=== PATIENT | female | born 1980 | race Caucasian/White ===

== ENCOUNTER → 2017-10-27 | Outpatient (CLI) | payer BC | END | disposition home or self-care (01) | LOC: US 16:20 | DX: N83.291 Other ovarian cyst, right side (principal); N88.8 Other specified noninflammatory disorders of cervix uteri | CPT/HCPCS: 76830; 76856 ==

== ENCOUNTER 2017-12-21 05:58 | Observation (INO) | payer BC ==
[~2017-12-21] VITALS: Ht 177.8 cm; Wt 101.2 kg
[2017-12-21] MEDS ORDERED: METHYLENE BLUE 1% 10 ML VIAL. ONE (06:15)
[2017-12-21] MEDS ORDERED: BUPIVACAINE-EPI 0.25%-1:200000 50 ML VIAL. ONE (06:15)
[2017-12-21] MEDS ORDERED: SURGICEL HEMOSTAT 4X8 EACH. ONE (06:16)
[2017-12-21] MEDS ORDERED: ESTROGENS, CONJ VAGINAL CREAM 30GM TUBE. ONE (06:16)
[2017-12-21] MEDS ORDERED: GABA-585 PO (06:27)
[2017-12-21] MEDS ORDERED: NORE5TAB3 PO (06:30)
[2017-12-21 06:36] LABS: U PREG PATIENT NEGATIVE (NEG)
[2017-12-21] MEDS: IV RINGERS,LACTATED 1000ML 1,000 ML IV SCH ×2 (06:42→11:15)
[2017-12-21] MEDS ORDERED: fentaNYL PF VIAL 100 MCG/2 ML VIAL IV PRN (07:00)
[2017-12-21] MEDS ORDERED: LIDOCAINE 1% PF 2 ML VIAL. ID PRN (07:00)
[2017-12-21] MEDS ORDERED: ONDANSETRON PF 4 MG/2 ML VIAL. IV PRN ×2 (07:00→09:45)
[2017-12-21 07:09] LABS: BASO % 0 % (0-3); EOS # 0.3 x10^3/uL (0.0-0.7); EOS % 4 % (0-3); HEMATOCRIT 42.5 % (36.0-47.0); HEMOGLOBIN 14.6 g/dL (12.0-15.5); LYMPH # 2.6 x10^3/uL (1.0-4.8); LYMPH % 34 % (24-48); MEAN CORPUSCULAR HEMOGLOBIN 31 pg (25-35); MEAN CORPUSCULAR HGB CONC 34 g/dL (31-37); MEAN CORPUSCULAR VOLUME 91 fL (79-100); MONO # 0.4 x10^3/uL (0.0-1.1); MONO % 5 % (0-9); NEUT # 4.3 x10^3uL (1.8-7.7); NEUT % 56 % (31-73); PLATELET COUNT 172 x10^3/uL (140-400); RED BLOOD COUNT 4.66 x10^6/uL (3.50-5.40); RED CELL DISTRIBUTION WIDTH 13.6 % (11.5-14.5); WHITE BLOOD COUNT 7.6 x10^3/uL (4.0-11.0)
[2017-12-21] MEDS ORDERED: fentaNYL PF VIAL 250 MCG/5 ML VIAL ONE (07:37)
[2017-12-21] MEDS ORDERED: MIDAZOLAM HCL/PF 2 MG/2 ML VIAL. ONE (07:37)
[2017-12-21] MEDS ORDERED: ROCURONIUM 50 MG/5 ML VIAL. ONE (07:37)
[2017-12-21] MEDS ORDERED: LIDOCAINE 2% PF Vial for OR 5 ML VIAL. ONE (08:57)
[2017-12-21] MEDS ORDERED: DEXAMETHASONE SOD PHOS 20 MG/5 ML VIAL. ONE (08:57)
[2017-12-21] MEDS ORDERED: ONDANSETRON PF 4 MG/2 ML VIAL. ONE (08:57)
[2017-12-21] MEDS ORDERED: PROPOFOL 20 ML IV ONE (08:57)
[2017-12-21] MEDS ORDERED: NEOSTIGMINE METHYLSULFATE 5 MG/5 ML SYRINGE. ONE (08:58)
[2017-12-21] MEDS ORDERED: GLYCOPYRROLATE 1 MG/5 ML VIAL. ONE (08:58)
--- NOTE | 2017-12-21 09:32 | PDOC ---
BRIEF OPERATIVE NOTE Date: Dec 21, 2017 Pre-Op Diagnosis 1. Endometriosis 2. Fibroids 3. ROV Cyst 4. Chronic Pelivc Pain Post-Op Diagnosis Same Procedure Performed TLH & RSO vai Da Brandy Surgeon Dr. Morris Braille Typist Yusra Anesthesia Type: General Blood Loss 25 ml Specimens Obtained cervix, uterus, roxie. fallopian tubes and ROV Findings enlarged, fibroid uterus; ROV cyst 3 cm; nml fallopian tubes and nml NAYE Complications none Operative Note see dictation SHARON MORRIS Jr, MD Dec 21, 2017 09:32
[2017-12-21] MEDS ORDERED: fentaNYL PF VIAL 100 MCG/2 ML VIAL ONE (09:44)
[2017-12-21] MEDS ORDERED: diphenhydrAMINE 50 MG/ML VIAL IV PRN (09:45)
[2017-12-21] MEDS ORDERED: DEXTROSE 50% 25 GM / 50ML DISP.SYRIN. IV PRN (09:45)
[2017-12-21] MEDS ORDERED: ZOLPIDEM 5 MG TABLET. PO PRN (09:45)
[2017-12-21] MEDS ORDERED: CALCIUM CARBONATE 500 MG TAB.CHEW PO PRN (09:45)
[2017-12-21] MEDS ORDERED: PROCHLORPERAZINE 10 MG/2 ML VIAL. IV PRN (09:45)
[2017-12-21] MEDS ORDERED: 0.9 % SODIUM CHLORIDE 10 ML DISP.SYRIN. IV PRN (09:45)
[2017-12-21] MEDS ORDERED: diphenhydrAMINE HCL 25 MG CAPSULE PO PRN (09:45)
[2017-12-21] MEDS: PROCHLORPERAZINE 10 MG/2 ML VIAL. IV PRN ×2 (09:54→10:07)
[2017-12-21] MEDS: fentaNYL PF VIAL 100 MCG/2 ML VIAL IV PRN ×2 (10:06→10:25)
--- NOTE | 2017-12-21 11:25 | OP ---
DATE OF SURGERY: 12/21/2017 PREOPERATIVE DIAGNOSES: 1. Endometriosis. 2. Fibroids. 3. Right ovarian cyst. 4. Chronic pelvic pain. POSTOPERATIVE DIAGNOSES: 1. Endometriosis. 2. Fibroids. 3. Right ovarian cyst. 4. Chronic pelvic pain. PROCEDURE: TLH and RSO via da Brandy robot. SURGEON: Sharon Morris MD. MENTAL HEALTH TECHNICIAN: Yusra. ANESTHESIA: GETA. ESTIMATED BLOOD LOSS: 25 mL. COMPLICATIONS: None. FINDINGS: Enlarged fibroid uterus, right ovarian cyst 3 cm size, normal fallopian tubes and normal left ovary. SUMMARY: A 37-year-old with endometriosis, fibroids, chronic pelvic pain, and right ovarian cyst requiring hysterectomy. She was counseled on risks, benefits and expectations of robotic TLH and RSO. The patient voiced clear understanding of all risks and desired to proceed. DESCRIPTION OF PROCEDURE: The patient was taken to the surgery suite and placed in dorsal lithotomy position. She was prepped with Betadine solution for vaginal prep and ChloraPrep for abdominal prep. After adequate anesthesia, a weighted speculum and curved Murphy placed vaginally. Anterior lip of the cervix grasped with single tooth tenaculum. The EMERITA uterine manipulator was then placed. The single tooth tenaculum and weighted speculum and curved Murphy were removed. Attention was now placed on abdomen. Small transverse skin incision was made just below the umbilicus. The Veress needle was then placed through the infraumbilical incision site. The abdomen was allowed to insufflate up to 1.5 liters of CO2 gas. The Veress needle was then removed. The 8-mm trocar camera port was placed. Camera was positioned. Uterus was enlarged with multiple fibroids. The right ovary demonstrated a 3-cm size cyst. There was a possible evidence of endometriosis on the posterior cul-de-sac. Two additional incisions in the left and right lower quadrant with a scalpel, in which 8-mm trocars were placed. An accessory port was placed in the left upper quadrant, which was a 5-mm port. The robot was then docked in normal fashion. I then proceeded to the console. With the aid of the vessel sealer and the bipolar cautery, the right round ligament was coagulated and dissected. The right infundibulopelvic ligament was coagulated and dissected. The right broad ligament was coagulated and dissected down to and including the right uterine artery. Bladder flap was partially created using blunt dissection along with the vessel sealer. The left round ligament was then coagulated and dissected. Left fallopian tube was coagulated and dissected away from the left ovary. The left utero-ovarian pedicle was coagulated and dissected. Left broad ligament was coagulated and dissected including the left uterine artery. Spatula was utilized to circumscribe the cervix at the level of the cervical ring. The cervix, uterus, right fallopian tube and ovary and left fallopian tube were removed. The vaginal cuff was reapproximated using V-Loc suture in a running fashion. Suction irrigation was utilized to verify good hemostasis. A small amount of normal saline was left in posterior cul-de-sac. Trocars were removed under direct visualization. The abdomen was allowed to deflate as much as possible along with mechanical manipulation. The four skin incisions were reapproximated using 4-0 Vicryl suture in subcuticular manner. A 0.25% Marcaine with epinephrine was injected at each incision site. Moist vaginal packing was placed. The patient tolerated the procedure well and was taken to recovery room in stable condition. Sponge and needle count correct x 3. The ureters were visualized and functioning properly. SHARON MORRIS MD DR: JIMENA/miguel JOB#: [id number] / [id number]
[2017-12-21 11:32] VITALS: BP 114/63
[2017-12-21 11:47] VITALS: BP 119/58
[2017-12-21 12:10] VITALS: BP 126/56
[2017-12-21 12:45] VITALS: BP 131/70
[2017-12-21] MEDS: oxyCODONE/APAP 5/325 1 TAB TABLET PO PRN ×3 (13:05→22:08)
[2017-12-21 13:18] VITALS: BP 122/68
[2017-12-21] MEDS: GABAPENTIN 300 MG CAPSULE. PO SCH ×2 (13:55→22:08)
[2017-12-21] MEDS: SIMETHICONE 80 MG TAB.CHEW PO PRN (18:43)
[2017-12-21 22:00] VITALS: BP 130/60
[2017-12-22 02:00] VITALS: BP 121/71
[2017-12-22] MEDS: oxyCODONE/APAP 5/325 1 TAB TABLET PO PRN ×5 (02:12→18:05)
[2017-12-22 04:21] LABS: BASO % 0 % (0-3); EOS # 0.1 x10^3/uL (0.0-0.7); EOS % 1 % (0-3); HEMOGLOBIN 12.9 g/dL (12.0-15.5); LYMPH # 2.8 x10^3/uL (1.0-4.8); LYMPH % 20 % (24-48); MEAN CORPUSCULAR HEMOGLOBIN 31 pg (25-35); MEAN CORPUSCULAR HGB CONC 34 g/dL (31-37); MEAN CORPUSCULAR VOLUME 92 fL (79-100); MONO # 0.7 x10^3/uL (0.0-1.1); MONO % 5 % (0-9); NEUT # 10.5 x10^3uL (1.8-7.7); NEUT % 74 % (31-73); PLATELET COUNT 153 x10^3/uL (140-400); RED BLOOD COUNT 4.13 x10^6/uL (3.50-5.40); RED CELL DISTRIBUTION WIDTH 13.7 % (11.5-14.5); WHITE BLOOD COUNT 14.1 x10^3/uL (4.0-11.0)
[2017-12-22] MEDS: GABAPENTIN 300 MG CAPSULE. PO SCH ×2 (06:03→16:32)
[2017-12-22 06:08] VITALS: BP 121/68
[2017-12-22 08:05] VITALS: BP 128/69
[2017-12-22] MEDS: DOCUSATE SODIUM 100 MG CAPSULE. PO PRN ×2 (08:11→16:32)
[2017-12-22] MEDS: SIMETHICONE 80 MG TAB.CHEW PO PRN ×3 (08:11→16:32)
[2017-12-22] MEDS ORDERED: IBUPROFEN 800 MG TABLET. PO PRN (12:30)
[2017-12-22] MEDS ORDERED: OPIUM/BELLADONNA 30/16.2MG SUPP.RECT. PR PRN (13:45)
--- NOTE | 2017-12-22 14:00 | PDOC3 ---
Admit Date: 12/21/17 D/c Date: 12/22/17 Admit Dx: Endometriosis Fibroids ROV Cyst D/c Dx: same Procedure: TLH & RSO via Da Brandy robot Surgeon: Dr. Morris [facility] Hospital Course: Pt. underwent TLH & RSO without complications for above diagnoses. D/c Diet: Regular diet D/c Instructions: pelvic rest x 6 wks, no driving x 2 wks, no lifting > 20 lbs. x 4 wks F/u in 2 wks. SHARON MORRIS Jr, MD Dec 22, 2017 14:00
--- NOTE | 2017-12-22 14:00 | DISCH ---
DISCHARGE INSTRUCTIONS Condition on Discharge Condition on Discharge: Stable Activity After Discharge Activity Instructions for Disc: Activity as tolerated Lifting Instructions after Dis: No heavy lifting Driving Instructions after Dis: No driving for 2 weeks Diet after Discharge Diet after Discharge: Regular Contacting the DRSoco after DC Call your doctor for: Concerns you may have Follow-Up Follow up with: Dr. Morris in 2 weeks. SHARON MORRIS Jr, MD Dec 22, 2017 14:00
[2017-12-22] MEDS ORDERED: OXYC1TAB7 PO (14:03)
[2017-12-22] MEDS ORDERED: IBUP800T19 PO (14:03)
[2017-12-22] MEDS ORDERED: DOCU-109 PO (14:03)
[2017-12-22 16:47] VITALS: BP 119/66
--- NOTE | 2017-12-27 14:09 | PATHOLOGY ---
[facility] Accession Number: [id number] . 01 Material submitted: . CERVIX, UTERUS, RIGHT TUBE AND OVARY . 01 Clinical history: . Endometriosis . 02 Diagnosis: Uterus and attached right adnexa and left tubal stump, robotic assisted hysterectomy with right salpingoophorectomy: - Chronic inflammation of exocervix. - Severe dysplasia/iljjkqafp-sa-wvfj (AMBROCIO III) with focal endocervical glandular extension, uterine cervix, focal. - Exocervical margin negative for AMBROCIO III - Chronic cervicitis with focal atypical squamous metaplasia. - Inactive/atrophic endometrium. - Adenomyosis, uterine corpus, subbasal, with myometrial hypertrophy (uterine weight 190 grams). - Leiomyoma, uterine corpus, intramural. - Focal endometriosis of right tubal stump. - Edema and focally hemorrhagic cystic follicles of right ovary. (JPM:vick; 12/26/2017) QMS/12/27/2017 . 02 Comment: There is focal AMBROCIO III involving uterine cervix. The entire cervix is submitted for histologic evaluation. There is no evidence of invasive carcinoma. The exocervical margin is negative for AMBROCIO III. . 02 Electronically signed: . Loc Negron MD, Pathologist NPI- [id number] . 01 Gross description: . The specimen is received in formalin, labeled "Ivet Lozano, cervix, uterus, right tube and ovary". Received is a 190 g, 10.4 x 6.3 x 5.7 cm uterus with attached cervix, attached left fallopian tube stump weighing 2 g, and attached right adnexa weighing 24 g. The uterine serosa is pink-samaniego to pink-medrano in appearance with a single serosal nodule present on the posterior aspect measuring 0.3 cm. There is also a dark brown patch near the left cornu on the fundal aspect of the serosa measuring 2.8 x 1.5 cm. The 1.7 cm cervical os is surrounded by light samaniego, granular to pink-medrano, smooth ectocervical mucosa. The uterus is oriented using the peritoneal reflection and the anterior paracervical area is inked black. The uterus is opened laterally to reveal a pale samaniego, corrugated endocervical canal measuring 2.8 cm in length. The endometrial cavity is triangular measuring 5.6 cm in length by 3.5 cm in width. The endometrium is pale samaniego, glistening in appearance and measures 0.1 cm in thickness. Serial sectioning reveals a samaniego-pink, trabeculated myometrium measuring 2.9 cm in thickness displaying a single intramural fibroid measuring 1.6 cm in maximum dimensions. . The left non-fimbriated fallopian tube stump measures 2.8 cm in length by 0.9 cm in diameter. Sectioning reveals a pinpoint to dilated lumen and the fallopian tube appears otherwise grossly full. . The right non-fimbriated fallopian tube stump measures 1.6 cm in length by 0.9 cm in diameter attached to a 4.4 x 3.5 x 2.9 cm ovary. Sectioning through the fallopian tube stump reveals a pinpoint lumen. The ovarian surface is white-medrano to blue-medrano appearance with a slight amount of overlying adhesions. Sectioning through the ovary reveals multiple cystic structures ranging in size from 0.7 to 2.7 cm filled with blood-tinged fluid, one of which displays two additional cystic structures on the cyst wall lining measuring 0.2 and 0.5 cm. The remaining cut surfaces display pale samaniego, normal ovarian stroma. The specimen is submitted representatively as follows: . A1 12:00 cervix A2 6:00 cervix A3 serosal nodule A4 pharmacy sales representative sections from brown patch on fundal aspect of serosal surface A5 anterior endomyometrium A6 posterior endomyometrium A7 pharmacy sales representative section of intramural fibroid A8 pharmacy sales representative sections of left fallopian tube stump A9-A10 pharmacy sales representative sections of right adnexa, to include sections through the aforementioned surface adhesions. (CAA; 12/22/2017) . After initial microscopic examination the remainder of the cervix is submitted as follows: . A11-A13: 12-3:00 A14-A16: 3-6:00 A17-A19: 6-9:00 A20-A22: 9-12:00 (SDY; 9) QAC/QAC . 02 Pathologist provided ICD-10: D06.9, N72, N80.0, D25.1 . 02 CPT . 449176 Performed at: [address], [place] [id number] MD Aramis Funez MD Phone: [phone] Performed at: 02 [facility] [address] [place] [id number] MD Loc Negron MD Phone: [phone]
== END 2017-12-22 17:30 | disposition home or self-care (01) ==
LOC: SURG 05:58 → 3 NORTH 09:32
PROVIDERS: ADMIT Obstetrics & Gynecology; ATTEND Obstetrics & Gynecology
DX: D25.9 Leiomyoma of uterus, unspecified (principal); N83.201 Unspecified ovarian cyst, right side; N80.9 Endometriosis, unspecified; G89.29 Other chronic pain; R10.2 Pelvic and perineal pain; N80.3 Endometriosis of pelvic peritoneum
CPT/HCPCS: 36415; 58570; 81025; 85025; 86850; 86900; 86901; G0378; G0379; J0690; J0780; J1100; J2001; J2250; J2405; J2704; J2710; J3010; J3490; J7030; J7120; S2900; 88309; Q9968

== ENCOUNTER → 2019-02-11 | Outpatient (CLI) | payer BC ==
[2019-01-05 00:05] VITALS: BP 113/51
[~2019-02-11] MED LIST: DOCU-109 PO; GABA-585 PO; IBUP800T19 PO; NORE5TAB3 PO; ONDA4TAB7 PO; OXYC1TAB7 PO; TRAM50TA PO
--- NOTE | 2019-02-11 16:26 | RAD ---
EXAM: Pelvic sonogram. HISTORY: Right pelvic pain. TECHNIQUE: Transabdominal sonographic imaging of the pelvis was performed. COMPARISON: CT dated 01/04/2019 and sonogram dated 10/27/2017. FINDINGS: The uterus is surgically absent. The ovaries are not seen. The vaginal cuff is unremarkable. There are prominent bowel loops within the right adnexa at the site of reported pain. There is no pelvic free fluid. IMPRESSION: 1. Surgically absent uterus. 2. Nonvisualization of the ovaries. The patient reports a prior unilateral oophorectomy. 3. Prominent bowel loops within the right adnexa. Electronically signed by: Joyce Hernandez MD (02/11/2019 4:23 PM) [place] [id number]
== END | disposition home or self-care (01) ==
LOC: US 15:45
PROVIDERS: ATTEND Obstetrics & Gynecology
DX: R10.2 Pelvic and perineal pain (principal); I62.00 Nontraumatic subdural hemorrhage, unspecified; Z90.710 Acquired absence of both cervix and uterus; Z90.722 Acquired absence of ovaries, bilateral
CPT/HCPCS: 76856

== ENCOUNTER 2019-04-15 08:51 | Emergency (ER) | payer BC ==
[~2019-04-15] VITALS: Ht 177.8 cm; Wt 97.5 kg
[2019-04-15 09:30] VITALS: BP 135/58
--- NOTE | 2019-04-15 10:14 | RAD ---
Chest radiograph 04/15/2019 9:45 AM INDICATION: Cough, flu symptoms COMPARISON: 06/04/2006 TECHNIQUE: Frontal and lateral views of the chest are provided. FINDINGS: The cardiomediastinal silhouette is within normal limits. There are no pleural effusions. There is no pulmonary vascular congestion. There is no pneumothorax. The lungs are clear. No significant osseous abnormality is identified. IMPRESSION: No acute cardiopulmonary process. Electronically signed by: Rosa Tsang MD (04/15/2019 10:11 AM) [facility]
[2019-04-15 10:30] LABS: INFLUENZA A PATIENT NEGATIVE (NEGATIVE); INFLUENZA B PATIENT NEGATIVE (NEGATIVE)
[2019-04-15] MEDS ORDERED: ONDA4TAB12 PO (11:18)
--- NOTE | 2019-04-15 11:18 | PHYS DOC ---
Past Medical History Past Medical History: Endometriosis Additional Past Medical Histor: strep throat Past Surgical History: Hysterectomy, Tubal ligation, Other Additional Past Surgical Histo: right ankle fracture repair with hardware Alcohol Use: Rarely Drug Use: None Adult General Chief Complaint Chief Complaint: FLU SYMPTOM HPI HPI Patient is a 38 year old female with history of endometriosis presenting today complaining of cough, nasal congestion, and occasional episodes of nausea and vomiting, symptoms began 4 days ago. Patient denies any abdominal pain. Denies any urgency frequency or dysuria. She reports several family members have similar symptoms. Review of Systems Review of Systems Constitutional: Denies fever or chills [] Eyes: Denies change in visual acuity, redness, or eye pain [] HENT: Reports nasal congestion, denies sore throat [] Respiratory: Reports cough, denies shortness of breath [] Cardiovascular: No additional information not addressed in HPI [] GI: Reports nausea and vomiting. Denies abdominal pain, bloody stools or diarrhea [] : Denies dysuria or hematuria [] Musculoskeletal: Denies back pain or joint pain [] Integument: Denies rash or skin lesions [] Neurologic: Denies headache, focal weakness or sensory changes [] All other systems were reviewed and found to be within normal limits, except as documented in this note. Allergies Allergies Allergies Coded Allergies Type Severity Reaction Last Updated Verified almond Allergy Intermediate THROAT/MOUTH NUMB 12/21/17 Yes nickel Allergy Intermediate ITCH/RED 12/21/17 Yes ketorolac Adverse Reaction Intermediate "tuns red wherever they put it" 12/21/17 Yes morphine Adverse Reaction Mild NAUSEA/VOMITING 12/22/17 Yes Physical Exam Physical Exam Constitutional: Well developed, well nourished, no acute distress, non-toxic appearance. [] HENT: Normocephalic, atraumatic, bilateral external ears normal, oropharynx moist, no oral exudates, nose normal. [] Eyes: PERRLA, EOMI, conjunctiva normal, no discharge. [] Neck: Normal range of motion, no tenderness, supple, no stridor. [] Cardiovascular:Heart rate regular rhythm, no murmur [] Lungs & Thorax: Bilateral breath sounds clear to auscultation [] Abdomen: Bowel sounds normal, soft, no tenderness, no masses, no pulsatile masses. [] Skin: Warm, dry, no erythema, no rash. [] Back: No tenderness, no CVA tenderness. [] Extremities: No tenderness, no cyanosis, no clubbing, ROM intact, no edema. [] Neurologic: Alert and oriented X 3, normal motor function, normal sensory function, no focal deficits noted. [] Psychologic: Affect normal, judgement normal, mood normal. [] Current Patient Data Vital Signs Vital Signs Date Time Temp Pulse Resp B/P (MAP) Pulse Ox O2 Delivery O2 Flow Rate FiO2 04/15/19 09:30 98.6 79 16 135/58 (83) 99 98.6 Lab Values Laboratory Tests Test 04/15/19 09:35 04/15/19 10:05 Influenza Type A Antigen Negative (NEGATIVE) Influenza Type B Antigen Negative (NEGATIVE) Group A Streptococcus Rapid Negative (NEGATIVE) EKG EKG [] Radiology/Procedures Radiology/Procedures []PROCEDURE: CHEST PA & LATERAL Chest radiograph 04/15/2019 9:45 AM INDICATION: Cough, flu symptoms COMPARISON: 06/04/2006 TECHNIQUE: Frontal and lateral views of the chest are provided. FINDINGS: The cardiomediastinal silhouette is within normal limits. There are no pleural effusions. There is no pulmonary vascular congestion. There is no pneumothorax. The lungs are clear. No significant osseous abnormality is identified. IMPRESSION: No acute cardiopulmonary process. Electronically signed by: Linwood Tsang MD (04/15/2019 10:11 AM) [facility] DICTATED and SIGNED BY: LINWOOD TSANG MD DATE: 04/15/19 1011 Course & Med Decision Making Course & Med Decision Making Pertinent Labs and Imaging studies reviewed. (See chart for details) This is a 38-year-old female patient presenting to the ED today with cough, nasal congestion, nausea and vomiting, symptoms began 4 days ago. Patient is a febrile. Negative for influenza. Chest x-ray is negative. Highly suspect viral source for her symptoms. Supportive care measures recommended. Discharged to home. Dragon Disclaimer Dragon Disclaimer This electronic medical record was generated, in whole or in part, using a voice recognition dictation system. Departure Departure Impression: Primary Impression: Upper respiratory infection Additional Impressions: Cough Nausea & vomiting Disposition: 01 HOME, SELF-CARE Condition: STABLE Referrals: NO PCP (PCP) follow up with your doctor in 1-2 weeks Patient Instructions: Cough, Adult, Adyp-ic-Eaix, Upper Respiratory Infection, Adult, Fisc-qf-Lbfs Additional Instructions: You were evaluated in the emergency room with symptoms suspicious of a viral illness. Please maintain good hand hygiene, rest, push fluids. Take Tylenol every 4 hours and Motrin every 6 hours. He can also take pyrq-con-nrxfgxu days. Follow-up with your own doctor next week. Scripts Ondansetron (ONDANSETRON ODT) 4 Mg Tab.rapdis 1 TAB PO PRN Q6-8HRS, #16 TAB Prov: JOSE KEMP APRN 04/15/19 Problem Qualifiers Primary Impression: Upper respiratory infection URI type: unspecified URI Qualified Codes: J06.9 - Acute upper respiratory infection, unspecified Additional Impressions: Nausea & vomiting Vomiting type: unspecified Vomiting Intractability: non-intractable Qualified Codes: R11.2 - Nausea with vomiting, unspecified JOSE KEMP APRN Apr 15, 2019 11:18
== END 2019-04-15 11:31 | disposition home or self-care (01) ==
LOC: ER 08:51
DX: J06.9 Acute upper respiratory infection, unspecified (principal); R11.2 Nausea with vomiting, unspecified; R05 Cough; N80.9 Endometriosis, unspecified; Z90.710 Acquired absence of both cervix and uterus; Z98.51 Tubal ligation status; Z98.890 Other specified postprocedural states; Z88.6 Allergy status to analgesic agent; Z91.018 Allergy to other foods; Z91.048 Other nonmedicinal substance allergy status
CPT/HCPCS: 71046; 87070; 87804; 87880; 99285

== ENCOUNTER → 2019-05-24 | Day surgery (SDC) | payer BC ==
[~2019-05-24] MED LIST changes: +IV RINGERS,LACTATED 1000ML 1,000 ML IV ONE; +LIDOCAINE 2% PF 5 ML VIAL. ONE; +ONDA4TAB12 PO; +PROPOFOL 40 ML IV ONE
[2019-05-24 11:22] VITALS: BP 120/66
--- NOTE | 2019-05-27 15:07 | PATHOLOGY ---
[facility] Accession Number: [id number] . 01 Material submitted: . colon - SIGMOID COLON POLYP BIOPSIES. Modifiers: sigmoid . 01 Clinical history: . Abdominal pain . 02 Diagnosis: Colon biopsies, sigmoid colon polyp: - Hyperplastic polyps. . (JPM:vick; 05/27/2019) QMS 05/27/2019 0908 Local . 02 Comment: There are no adenomatous changes or evidence of malignancy. . 02 Electronically signed: . Loc Negron MD, Pathologist NPI- [id number] . 01 Gross description: . The specimen is received in formalin, labeled "Ivet Dutta, sigmoid colon polyp biopsies". Received are three segments of pale samaniego soft tissue ranging in size from 0.3 to 0.6 cm in maximum dimensions. The specimen is submitted entirely in cassette A1. (CAA; 05/24/2019) QA/QA 05/24/2019 1723 Local . 02 Pathologist provided ICD-10: K63.5 . 02 CPT . 328613 Specimen Comment: A courtesy copy of this report has been sent to [phone], [phone] Specimen Comment: [id number] Specimen Comment: Report sent to and Specimen Comment: A duplicate report has been generated due to demographic updates. Performed at: 01 [facility] [address], [place] [id number] MD Aramis Funez MD Phone: [phone] Performed at: 02 [facility] [address] [place], [place] [id number] MD Loc Negron MD Phone: [phone]
== END | disposition home or self-care (01) ==
LOC: SURG 09:46
PROVIDERS: ATTEND Internal Medicine Gastroenterology
DX: R10.31 Right lower quadrant pain (principal); K63.5 Polyp of colon; K64.0 First degree hemorrhoids; K63.89 Other specified diseases of intestine; N80.9 Endometriosis, unspecified; Z88.8 Allergy status to other drugs, medicaments and biological substances; Z80.3 Family history of malignant neoplasm of breast; Z82.49 Family history of ischemic heart disease and other diseases of the circulatory system; Z83.71 Family history of colonic polyps; Z98.890 Other specified postprocedural states; Z98.51 Tubal ligation status; Z90.710 Acquired absence of both cervix and uterus; Z72.0 Tobacco use
CPT/HCPCS: 45380; 88305; J2001; J2704

== ENCOUNTER 2019-07-11 06:42 | Day surgery (SDC) | payer BC ==
[~2019-07-11] VITALS: Ht 177.8 cm; Wt 99.0 kg
[~2019-07-11 06:42] MED LIST changes: -IV RINGERS,LACTATED 1000ML 1,000 ML IV ONE; -LIDOCAINE 2% PF 5 ML VIAL. ONE; -PROPOFOL 40 ML IV ONE
[2019-07-11] MEDS ORDERED: HYDROmorphone 2 MG/ML VIAL IV PRN (07:00)
[2019-07-11] MEDS ORDERED: fentaNYL PF VIAL 100 MCG/2 ML VIAL IV PRN (07:00)
[2019-07-11] MEDS ORDERED: ONDANSETRON PF 4 MG/2 ML VIAL. IV PRN (07:00)
[2019-07-11] MEDS ORDERED: PROCHLORPERAZINE 10 MG/2 ML VIAL. IV PRN (07:00)
[2019-07-11] MEDS ORDERED: MORPHINE SULFATE 2 MG/ML VIAL. IV PRN (07:00)
[2019-07-11] MEDS ORDERED: LIDOCAINE 1% PF 2 ML VIAL. ID PRN (07:00)
[2019-07-11] MEDS ORDERED: IV RINGERS,LACTATED 1000ML 1,000 ML IV SCH (07:00)
[2019-07-11 07:52] LABS: BILIRUBIN,URINE NEGATIVE (NEG); CLARITY,URINE CLEAR; COLOR,URINE YELLOW; NITRITE,URINE NEGATIVE (NEG); PROTEIN,URINE NEGATIVE (NEG-TRACE); UROBILINOGEN,URINE 0.2 mg/dL (0.2 mg/dL)
[2019-07-11 08:19] LABS: SQUAMOUS EPITHELIAL CELL,UR MOD /LPF
[2019-07-11 08:20] LABS: BACTERIA,URINE FEW /HPF (0-FEW); WBC,URINE OCC /HPF (0-4)
[2019-07-11] MEDS ORDERED: SEVOFLURANE 61 TO 120 MINUTES. IH ONE ×2 (09:23→11:36)
[2019-07-11] MEDS ORDERED: PROPOFOL 0 ML IV ONE (09:23)
[2019-07-11] MEDS ORDERED: ROCURONIUM 50 MG/5 ML VIAL. ONE ×2 (09:24→09:59)
[2019-07-11] MEDS ORDERED: ONDANSETRON PF 4 MG/2 ML VIAL. ONE ×2 (09:24→09:59)
[2019-07-11] MEDS ORDERED: MIDAZOLAM HCL/PF 2 MG/2 ML VIAL. ONE ×2 (09:24→10:00)
[2019-07-11] MEDS ORDERED: FAMOTIDINE 20 MG/2 ML VIAL ONE ×2 (09:24→09:59)
[2019-07-11] MEDS ORDERED: DEXAMETHASONE SOD PHOS 4 MG/ML VIAL ONE ×2 (09:24→09:59)
[2019-07-11] MEDS ORDERED: LIDOCAINE 2% PF 5 ML VIAL. ONE ×2 (09:24→09:59)
[2019-07-11] MEDS ORDERED: SURGICEL HEMOSTAT 4X8 EACH. ONE (09:55)
[2019-07-11] MEDS ORDERED: BUPIVACAINE-EPI 0.5%-1:200000 MPF 30 ML VIAL. ONE (09:55)
[2019-07-11] MEDS ORDERED: PROPOFOL 20 ML IV ONE (09:59)
[2019-07-11] MEDS ORDERED: fentaNYL PF VIAL 100 MCG/2 ML VIAL ONE ×3 (10:00→12:14)
[2019-07-11] MEDS ORDERED: KETAMINE HCL IN NACL, ISO-OSM 50 MG/5 ML SYRINGE ONE (10:34)
[2019-07-11] MEDS ORDERED: LIDOCAINE 2% JELLY 6ML IN APPLICATOR. ONE (11:01)
[2019-07-11] MEDS ORDERED: NEOSTIGMINE METHYLSULFATE 5 MG/5 ML SYRINGE. ONE (11:36)
[2019-07-11] MEDS ORDERED: GLYCOPYRROLATE 1 MG/5 ML VIAL. ONE (11:36)
--- NOTE | 2019-07-11 11:54 | PDOC ---
BRIEF OPERATIVE NOTE Date: Jul 11, 2019 Pre-Op Diagnosis 1. CPP 2. Cystitis Post-Op Diagnosis SAme + NAYE Cyst and Endometriosis Procedure Performed 1. Cystoscopy with hydrodistension 2. LPSC Resection endometriosis Surgeon Dr. Morris Anesthesia Type: General Blood Loss 10 ml Specimens Obtained posterior culde sac biopsy, NAYE cyst wall Findings NAYE cyst 3 cm (endometrioma), endometriosis posterior culde sac, pelvic sidewall adhesions; no evidence IC Complications none Operative Note see dictation SHARON MORRIS Jr, MD Jul 11, 2019 11:54
--- NOTE | 2019-07-11 11:56 | DISCH ---
DISCHARGE INSTRUCTIONS Condition on Discharge Condition on Discharge: Stable Activity After Discharge Activity Instructions for Disc: Activity as tolerated Lifting Instructions after Dis: No heavy lifting Driving Instructions after Dis: Do not drive today Diet after Discharge Diet after Discharge: Regular Contacting the DRSoco after DC Call your doctor for: Concerns you may have Follow-Up Follow up with: Dr. Morris in 1 week SHARON MORRIS Jr, MD Jul 11, 2019 11:56
[2019-07-11] MEDS ORDERED: PROCHLORPERAZINE 10 MG/2 ML VIAL. ONE (11:59)
[2019-07-11] MEDS: fentaNYL PF VIAL 100 MCG/2 ML VIAL IV PRN ×4 (12:09→12:54)
--- NOTE | 2019-07-11 12:21 | OP ---
DATE OF SURGERY: 07/11/2019 PREOPERATIVE DIAGNOSES: 1. Chronic pelvic pain. 2. Cystitis. POSTOPERATIVE DIAGNOSES: 1. Chronic pelvic pain. 2. Cystitis. 3. Left ovarian cyst and endometriosis. PROCEDURES: 1. Cystoscopy with hydrodistention. 2. Laparoscopic resection of endometriosis. SURGEON: Sharon Morris MD ANESTHESIA: GETA. ESTIMATED BLOOD LOSS: 10 mL. COMPLICATIONS: None. FINDINGS: Left ovarian cyst/endometrioma of about 3 cm size, endometriosis of posterior cul-de-sac, and pelvic sidewall adhesions. No evidence of interstitial cystitis. SUMMARY: This is a 38-year-old female with long history of chronic pelvic pain as well as history of endometriosis, presented for laparoscopic possible resection of endometriosis as well as cystoscopy with hydrodistention due to chronic cystitis. The patient was counseled on the risks, benefits, and expectations and voiced clear understanding to proceed. DESCRIPTION OF PROCEDURE: The patient was taken to surgery suite and placed in dorsal lithotomy position. She was prepped with Betadine solution for vaginal prep and ChloraPrep for abdominal prep. After adequate anesthesia, Cystoscopy was performed using 30-degree scope in which the bladder was evaluated. There did not appear to be any evidence of interstitial cystitis. Ureteral orifices were visualized and appeared normal. Hydrodistention was performed at 400 mL as well as 450 mL in which the fluid was sustained in the bladder with 3-minute interval. The bladder was then drained and 6 mL of 1% lidocaine was injected into the bladder. Sponge stick was then placed vaginally. We then proceeded abdominally. Small transverse skin incision was made just below the umbilicus with a scalpel. The Veress needle was then placed through the infraumbilical incision site. The abdomen was allowed to insufflate up to 1-1/2 liters CO2 gas. The Veress needle was then removed, 5 mm trocar was placed. Scope was positioned. There were pelvic sidewall adhesions. There appeared to be 2 lesions of endometriosis on the posterior cul-de-sac. Two additional incisions made in the left lower quadrant, which 5 mm and 8 mm trocars were placed with the aid of Ayaan graspers and the use of EnSeal device. The posterior cul-de-sac biopsy was performed removing the suspected endometriosis. The pelvic sidewall adhesions were then bluntly dissected along with EnSeal device. There was a 3 cm cyst on the left ovary, which was incised with the EnSeal and it revealed endometrioma. The cyst wall was removed with aid of graspers and EnSeal device. The remaining cyst wall was fulgurated using the EnSeal device. The area was hemostatic. Copious suction irrigation was utilized to verify good hemostasis as well as to irrigate the pelvis. Small amount of normal saline was left in posterior cul-de-sac. The trocars were then removed under direct visualization. The abdomen was allowed to deflate as much as possible along with mechanical manipulation. The three skin incisions were re-approximated using 4-0 Vicryl suture in subcuticular manner. A 0.25% Marcaine with epinephrine was injected at each incision site. Moist sponge stick was removed. The patient tolerated the procedure well and was taken to recovery room in stable condition. Sponge and needle count correct x 3. SHARON MORRIS MD DR: JIMENA/miguel JOB#: [id number] / [id number]
[2019-07-11] MEDS ORDERED: diphenhydrAMINE 50 MG/ML VIAL ONE (12:38)
[2019-07-11] MEDS ORDERED: diphenhydrAMINE 50 MG/ML VIAL IVP ONE (12:45)
[2019-07-11] MEDS ORDERED: HYDR-2765 PO ×2 (12:45→12:46)
[2019-07-11] MEDS ORDERED: HYDROcodone/APAP 7.5/325MG 1 TAB TABLET PO ONE (12:45)
[2019-07-11 13:30] VITALS: BP 125/65
[2019-07-12] MEDS ORDERED: CEPH-264 PO (12:17)
== END 2019-07-11 13:50 | disposition home or self-care (01) ==
LOC: SURG 06:42
PROVIDERS: ATTEND Obstetrics & Gynecology
DX: N80.1 Endometriosis of ovary (principal); N30.90 Cystitis, unspecified without hematuria; E66.9 Obesity, unspecified; Z68.31 Body mass index [BMI] 31.0-31.9, adult; Z90.710 Acquired absence of both cervix and uterus; G43.909 Migraine, unspecified, not intractable, without status migrainosus; Z87.891 Personal history of nicotine dependence; Z86.010 Personal history of colon polyps; Z87.440 Personal history of urinary (tract) infections; Z90.721 Acquired absence of ovaries, unilateral
CPT/HCPCS: 52260; 58662; 81001; A7015; J0696; J0780; J1100; J1200; J2001; J2250; J2405; J2704; J2710; J3010; J3490; J7030; J7120

== ENCOUNTER 2019-07-12 09:10 | Emergency (ER) | payer BC ==
[~2019-07-12] VITALS: Ht 177.8 cm; Wt 99.5 kg
[~2019-07-12 09:10] MED LIST changes: +HYDR-2765 PO
[2019-07-12 09:31] VITALS: BP 139/102
--- NOTE | 2019-07-12 09:42 | PHYS DOC ---
Past Medical History Past Medical History: Endometriosis Additional Past Medical Histor: strep throat (DANIEL PARRISH APRN) Past Surgical History: Hysterectomy, Tubal ligation, Other Additional Past Surgical Histo: right ankle fracture repair with hardware (DANIEL PARRISH APRN) Smoking Status: Current Every Day Smoker Alcohol Use: Rarely Drug Use: None (DANIEL PARRISH APRN) Adult General Chief Complaint Chief Complaint: POST-OP PROBLEM HPI HPI Patient is a 38 year old female who presents with cystoscopy that was yesterday. The patient says she has had multiples of these procedures over the years and today she feels awful and she has not felt this way in the past, she called Dr. Morris who told her to go to the ER for evaluation. She states that she is having shortness of breath, and abdominal pain. The patient took hydrocodone at 6 AM which is not helping. She rates her pain is 9 out of 10 in severity. She was having the procedure to look at endometriosis. (DANIEL PARRISH APRN) Current Medications Current Medications Current Medications Medications (Trade) Dose Ordered Sig/Aris Start Time Stop Time Status Last Admin Dose Admin Fentanyl Citrate (Fentanyl 2ml Vial) 75 mcg 1X ONCE 07/12/19 09:45 07/12/19 09:46 DC 07/12/19 09:49 75 MCG Iohexol (Omnipaque 350 Mg/ml) 100 ml 1X ONCE 07/12/19 10:45 07/12/19 10:46 DC 07/12/19 11:15 100 ML Metronidazole (Flagyl) 2,000 mg 1X STAT 07/12/19 12:17 07/12/19 12:19 DC 07/12/19 12:28 2,000 MG Morphine Sulfate (Morphine Sulfate) 5 mg 1X STAT 07/12/19 12:27 07/12/19 12:30 DC 07/12/19 12:33 5 MG Ondansetron HCl (Zofran) 4 mg 1X ONCE 07/12/19 09:45 07/12/19 09:46 DC 07/12/19 09:49 4 MG Sodium Chloride 1,000 ml @ 1,000 mls/hr 1X ONCE 07/12/19 09:45 07/12/19 10:44 DC 07/12/19 09:45 1,000 MLS/HR (COCO KELSEY MD) Allergies Allergies Allergies Coded Allergies Type Severity Reaction Last Updated Verified almond Allergy Intermediate THROAT/MOUTH NUMB 07/11/19 Yes nickel Allergy Intermediate ITCH/RED 07/11/19 Yes ketorolac Adverse Reaction Intermediate "tuns red wherever they put it" 07/11/19 Yes morphine Adverse Reaction Mild NAUSEA/VOMITING 07/11/19 Yes (COCO KELSEY MD) Physical Exam Physical Exam Constitutional: Well developed, well nourished, no acute distress, non-toxic appearance. [] HENT: Normocephalic, atraumatic. Eyes: PERRLA, EOMI, conjunctiva normal, no discharge. [] Neck: Normal range of motion, no tenderness, supple, no stridor. [] Cardiovascular:Heart rate regular rhythm, no murmur [] Lungs & Thorax: Bilateral breath sounds diminished. Abdomen: Bowel sounds normal, soft, diffuse tenderness, multiple lap sites, no masses, no pulsatile masses. [] Neurologic: Alert and oriented X 3, normal motor function, normal sensory function, no focal deficits noted. [] Psychologic: Affect normal, judgement normal, mood normal. [] (DANIEL PARRISH APRN) Current Patient Data Vital Signs Vital Signs Date Time Temp Pulse Resp B/P (MAP) Pulse Ox O2 Delivery O2 Flow Rate FiO2 07/12/19 09:49 20 07/12/19 09:31 98.1 80 139/102 (114) 100 Room Air 98.1 (COCO KELSEY MD) Lab Values Laboratory Tests Test 07/12/19 09:16 07/12/19 09:40 Urine Collection Type Unknown Urine Color Yellow Urine Clarity Clear Urine pH 7.0 (<5.0-8.0) Urine Specific [place] 1.010 (1.000-1.030) Urine Protein Negative mg/dL (NEG-TRACE) Urine Glucose (UA) Negative mg/dL (NEG) Urine Ketones (Stick) Negative mg/dL (NEG) Urine Blood Small (NEG) Urine Nitrite Negative (NEG) Urine Bilirubin Negative (NEG) Urine Urobilinogen Dipstick 1.0 mg/dL (0.2 mg/dL) Urine Leukocyte Esterase Small (NEG) Urine RBC 6-10 /HPF (0-2) Urine WBC 1-4 /HPF (0-4) Urine Squamous Epithelial Cells Few /LPF Urine Bacteria Few /HPF (0-FEW) Urine Mucus Slight /LPF Urine Trichomonas Present Urine Test Negative (NEG) White Blood Count 15.7 x10^3/uL (4.0-11.0) H Red Blood Count 4.65 x10^6/uL (3.50-5.40) Hemoglobin 14.1 g/dL (12.0-15.5) Hematocrit 42.8 % (36.0-47.0) Mean Corpuscular Volume 92 fL (79-100) Mean Corpuscular Hemoglobin 30 pg (25-35) Mean Corpuscular Hemoglobin Concent 33 g/dL (31-37) Red Cell Distribution Width 13.7 % (11.5-14.5) Platelet Count 176 x10^3/uL (140-400) Neutrophils (%) (Auto) 73 % (31-73) Lymphocytes (%) (Auto) 21 % (24-48) L Monocytes (%) (Auto) 4 % (0-9) Eosinophils (%) (Auto) 1 % (0-3) Basophils (%) (Auto) 0 % (0-3) Neutrophils # (Auto) 11.5 x10^3/uL (1.8-7.7) H Lymphocytes # (Auto) 3.3 x10^3/uL (1.0-4.8) Monocytes # (Auto) 0.6 x10^3/uL (0.0-1.1) Eosinophils # (Auto) 0.2 x10^3/uL (0.0-0.7) Basophils # (Auto) 0.0 x10^3/uL (0.0-0.2) Prothrombin Time 12.6 SEC (11.7-14.0) Prothrombin Time INR 1.0 (0.8-1.1) Activated Partial Thromboplast Time 28 SEC (24-38) Sodium Level 140 mmol/L (136-145) Potassium Level 3.5 mmol/L (3.5-5.1) Chloride Level 103 mmol/L (98-107) Carbon Dioxide Level 27 mmol/L (21-32) Anion Gap 10 (6-14) Blood Urea Nitrogen 14 mg/dL (7-20) Creatinine 0.6 mg/dL (0.6-1.0) Estimated GFR (Cockcroft-Gault) 113.1 BUN/Creatinine Ratio 23 (6-20) H Glucose Level 93 mg/dL (70-99) Lactic Acid Level 1.3 mmol/L (0.4-2.0) Calcium Level 8.5 mg/dL (8.5-10.1) Total Bilirubin 0.4 mg/dL (0.2-1.0) Aspartate Amino Transferase (AST) 13 U/L (15-37) L Alanine Aminotransferase (ALT) 22 U/L (14-59) Alkaline Phosphatase 43 U/L (46-116) L Total Protein 6.8 g/dL (6.4-8.2) Albumin 3.8 g/dL (3.4-5.0) Albumin/Globulin Ratio 1.3 (1.0-1.7) Procalcitonin < 0.10 ng/mL (0.00-0.10) Laboratory Tests 07/12/19 09:40 Laboratory Tests 07/12/19 09:40 (COCO KELSEY MD) Lab Values Laboratory Tests Test 07/12/19 09:16 07/12/19 09:40 Urine Collection Type Unknown Urine Color Yellow Urine Clarity Clear Urine pH 7.0 (<5.0-8.0) Urine Specific [place] 1.010 (1.000-1.030) Urine Protein Negative mg/dL (NEG-TRACE) Urine Glucose (UA) Negative mg/dL (NEG) Urine Ketones (Stick) Negative mg/dL (NEG) Urine Blood Small (NEG) Urine Nitrite Negative (NEG) Urine Bilirubin Negative (NEG) Urine Urobilinogen Dipstick 1.0 mg/dL (0.2 mg/dL) Urine Leukocyte Esterase Small (NEG) Urine RBC 6-10 /HPF (0-2) Urine WBC 1-4 /HPF (0-4) Urine Squamous Epithelial Cells Few /LPF Urine Bacteria Few /HPF (0-FEW) Urine Mucus Slight /LPF Urine Trichomonas Present Urine Test Negative (NEG) White Blood Count 15.7 x10^3/uL (4.0-11.0) H Red Blood Count 4.65 x10^6/uL (3.50-5.40) Hemoglobin 14.1 g/dL (12.0-15.5) Hematocrit 42.8 % (36.0-47.0) Mean Corpuscular Volume 92 fL (79-100) Mean Corpuscular Hemoglobin 30 pg (25-35) Mean Corpuscular Hemoglobin Concent 33 g/dL (31-37) Red Cell Distribution Width 13.7 % (11.5-14.5) Platelet Count 176 x10^3/uL (140-400) Neutrophils (%) (Auto) 73 % (31-73) Lymphocytes (%) (Auto) 21 % (24-48) L Monocytes (%) (Auto) 4 % (0-9) Eosinophils (%) (Auto) 1 % (0-3) Basophils (%) (Auto) 0 % (0-3) Neutrophils # (Auto) 11.5 x10^3/uL (1.8-7.7) H Lymphocytes # (Auto) 3.3 x10^3/uL (1.0-4.8) Monocytes # (Auto) 0.6 x10^3/uL (0.0-1.1) Eosinophils # (Auto) 0.2 x10^3/uL (0.0-0.7) Basophils # (Auto) 0.0 x10^3/uL (0.0-0.2) Prothrombin Time 12.6 SEC (11.7-14.0) Prothrombin Time INR 1.0 (0.8-1.1) Activated Partial Thromboplast Time 28 SEC (24-38) Sodium Level 140 mmol/L (136-145) Potassium Level 3.5 mmol/L (3.5-5.1) Chloride Level 103 mmol/L (98-107) Carbon Dioxide Level 27 mmol/L (21-32) Anion Gap 10 (6-14) Blood Urea Nitrogen 14 mg/dL (7-20) Creatinine 0.6 mg/dL (0.6-1.0) Estimated GFR (Cockcroft-Gault) 113.1 BUN/Creatinine Ratio 23 (6-20) H Glucose Level 93 mg/dL (70-99) Lactic Acid Level 1.3 mmol/L (0.4-2.0) Calcium Level 8.5 mg/dL (8.5-10.1) Total Bilirubin 0.4 mg/dL (0.2-1.0) Aspartate Amino Transferase (AST) 13 U/L (15-37) L Alanine Aminotransferase (ALT) 22 U/L (14-59) Alkaline Phosphatase 43 U/L (46-116) L Total Protein 6.8 g/dL (6.4-8.2) Albumin 3.8 g/dL (3.4-5.0) Albumin/Globulin Ratio 1.3 (1.0-1.7) Laboratory Tests 07/12/19 09:40 Laboratory Tests 07/12/19 09:40 (DANIEL PARRISH APRN) EKG EKG [] (DANIEL PARRISH APRN) Radiology/Procedures Radiology/Procedures [facility] [address] [place] [address] IMAGING REPORT Signed PATIENT: SHAUNA FERNANDEZ CACCOUNT: [id number] : 1980 LOCATION: ER AGE: 38 SEX: F EXAM STATUS: REG ER ORD. PHYSICIAN: DANIEL PARRISH APRN REASON: shortness of breath, post surgery PROCEDURE: CT ANGIO CHEST W ABD PEL W/ CT arteriogram of the chest, CT of the abdomen and pelvis with contrast. HISTORY: Port of breath, post surgery CT arteriogram of the chest was done using 100 mL Omnipaque 350 contrast. Sagittal and coronal MIP images were reconstructed. There is mild atelectasis in the lung bases. There is no pleural effusion. No other infiltrates are noted. There is mild respiratory motion artifact in the lung bases. This study is negative for evidence of a pulmonary embolus. IMPRESSION: 1. Negative for pulmonary embolus. 2. Respiratory motion artifact. 3. Mild atelectasis in the lung bases without other infiltrates. End impression The abdomen pelvis with contrast. A CT scan the abdomen pelvis was done following the CT chest with contrast. There is free air in the abdomen but the patient is postoperative. A liver lesion is not identified. There is no calcified gallstone. Spleen and adrenal glands are normal. A pancreatic lesion is not identified. There is no mass or hydronephrosis in the kidneys. There is no aortic aneurysm. There is no bowel obstruction. There is moderate stool in the colon. There is mild free fluid in the pelvis. Patient's had a hysterectomy. Left ovary is identified and normal in appearance. Right ovary is not from the bowel loops. There is mild air in the superficial soft tissues also likely postoperative. IMPRESSION: 1. Moderate stool in colon. 2. Small amount of fluid in the pelvis but a definitive abscess is not identified. 3. Pneumoperitoneum probably still postoperative. 4. No bowel obstruction. 5. No other acute finding. RS Compliance Statement: One or more of the following individualized dose reduction techniques were utilized for this examination: 1. Automated exposure control 2. Adjustment of the mA and/or kV according to patient size 3. Use of iterative reconstruction technique Electronically signed by: Oscar Moncada MD (07/12/2019 11:40 AM) [id number] DICTATED and SIGNED BY: OSCAR MONCADA MD DATE: 07/12/19 1140 [][facility] [address] [place] [address] IMAGING REPORT Signed PATIENT: SHAUNA FERNANDEZ CACCOUNT: [id number] : 1980 LOCATION: ER AGE: 38 SEX: F EXAM STATUS: PRE ER ORD. PHYSICIAN: DANIEL PARRISH APRN REASON: shortness of breath post surgery PROCEDURE: CHEST PA & LATERAL AP and Lateral Views of the Chest 07/12/2019 9:35 AM Indication: Postoperative shortness of breath Comparison: Chest radiograph April 15, 2019 Findings: There is no focal consolidation or infiltrate identified. The cardiomediastinal silhouette is within normal limits. There is no evidence of pneumothorax or pleural effusion. No acute osseous abnormalities are identified. Minimal right upper quadrant pneumoperitoneum noted. Correlate with nature recent surgical procedure. Impression: 1. No evidence of acute cardiopulmonary process. 2. Minimal right upper quadrant pneumoperitoneum. Correlate with nature of surgical procedure Electronically signed by: Arjun Calvillo MD (07/12/2019 10:13 AM) [id number] DICTATED and SIGNED BY: ARJUN CALVILLO MD DATE: 07/12/19 1013 (DANIEL PARRISH APRN) Course & Med Decision Making Course & Med Decision Making Pertinent Labs and Imaging studies reviewed. (See chart for details) Patient is having extreme shortness of breath and abdominal pain post surgery. Will order a CT of the chest and stomach. We will not order a d-dimer before as the D-dimers can be elevated due to surgery. Imaging is unremarkable. Labs show WBC of 15,000 likely inflammation from surgery. Discussed case with Dr. Morris who will see her in clinic in several days. Discussed with patient to return to ER if symptoms worsen. Patient's urine does show bacteria and shows trichomonas. Will treat with Keflex and Flagyl. (DANIEL PARRISH APRN) Course & Med Decision Making Staff Physician Addendum: I was working in the ER during the course of this patient's visit. I was available for consultation as needed, but I was not directly involved in the care of this patient. (COCO KELSEY MD) Dragon Disclaimer Dragon Disclaimer This electronic medical record was generated, in whole or in part, using a voice recognition dictation system. (DANIEL PARRISH APRN) Departure Departure Impression: Primary Impression: Post-op pain Additional Impressions: Trichomoniasis Urinary tract infection Disposition: HOME, SELF-CARE Condition: STABLE Referrals: NO PCP (PCP) SHARON MORRIS Jr, MD Patient Instructions: Trichomoniasis Additional Instructions: Thank you for visiting [facility]. We appreciate you trusting us with your care. If any additional problems come up don't hesitate to return to visit us. Please follow up with your primary care provider so they can plan additional care if needed and know about the problem that you had. If symptoms worsen come back to the Emergency Department. Any concerning symptoms that start such as chest pain, shortness of air, weakness or numbness on one side of the body, running high fevers or any other concerning symptoms return to the ER. You have been tested for sexually transmitted diseases in the ER today. Please notify your partner. Please avoid sexual intercourse for 2 weeks to avoid passing the infection back and forth. You have been prescribed an antibiotic today to help fight your infection. Please take all of the antibiotic as directed. If after 48 hours the infection is not improving, please return for more care. If the infection worsens, return to ER for additional care. If symptoms worsen please return to the ER for further evaluation or call Dr. Morris. Please follow-up with Dr. Morris early next week in his office. Scripts Cephalexin (KEFLEX) 500 Mg Capsule 1 CAP PO BID for 7 Days, #14 CAP 0 Refills Prov: DANIEL PARRISH APRN 07/12/19 Problem Qualifiers Additional Impressions: Urinary tract infection Urinary tract infection type: acute cystitis Hematuria presence: with hematuria Qualified Codes: N30.01 - Acute cystitis with hematuria DANIEL PARRISH APRN Jul 12, 2019 09:42 COCO KELSEY MD Jul 12, 2019 16:31
[2019-07-12] MEDS ORDERED: fentaNYL PF VIAL 100 MCG/2 ML VIAL IV ONE (09:45)
[2019-07-12] MEDS ORDERED: ONDANSETRON PF 4 MG/2 ML VIAL. IV ONE (09:45)
[2019-07-12] MEDS ORDERED: IV NORMAL SALINE 1000ML BAG 1,000 ML IV ONE (09:45)
[2019-07-12 09:55] LABS: BILIRUBIN,URINE NEGATIVE (NEG); CLARITY,URINE CLEAR; COLOR,URINE YELLOW; NITRITE,URINE NEGATIVE (NEG); PROTEIN,URINE NEGATIVE (NEG-TRACE)
[2019-07-12 09:59] LABS: BASO % 0 % (0-3); EOS # 0.2 x10^3/uL (0.0-0.7); EOS % 1 % (0-3); HEMATOCRIT 42.8 % (36.0-47.0); HEMOGLOBIN 14.1 g/dL (12.0-15.5); LYMPH # 3.3 x10^3/uL (1.0-4.8); LYMPH % 21 % (24-48); MEAN CORPUSCULAR HEMOGLOBIN 30 pg (25-35); MEAN CORPUSCULAR HGB CONC 33 g/dL (31-37); MEAN CORPUSCULAR VOLUME 92 fL (79-100); MONO # 0.6 x10^3/uL (0.0-1.1); MONO % 4 % (0-9); NEUT # 11.5 x10^3/uL (1.8-7.7); NEUT % 73 % (31-73); PLATELET COUNT 176 x10^3/uL (140-400); RED BLOOD COUNT 4.65 x10^6/uL (3.50-5.40); RED CELL DISTRIBUTION WIDTH 13.7 % (11.5-14.5); WHITE BLOOD COUNT 15.7 x10^3/uL (4.0-11.0)
[2019-07-12 10:02] LABS: U PREG PATIENT NEGATIVE (NEG)
[2019-07-12 10:06] LABS: PROTHROMBIN TIME PATIENT 12.6 SEC (11.7-14.0)
[2019-07-12 10:10] LABS: CALCIUM 8.5 mg/dL (8.5-10.1); CREATININE 0.6 mg/dL (0.6-1.0); GFR 113.1; POTASSIUM 3.5 mmol/L (3.5-5.1)
--- NOTE | 2019-07-12 10:15 | RAD ---
AP and Lateral Views of the Chest 07/12/2019 9:35 AM Indication: Postoperative shortness of breath Comparison: Chest radiograph April 15, 2019 Findings: There is no focal consolidation or infiltrate identified. The cardiomediastinal silhouette is within normal limits. There is no evidence of pneumothorax or pleural effusion. No acute osseous abnormalities are identified. Minimal right upper quadrant pneumoperitoneum noted. Correlate with nature recent surgical procedure. Impression: 1. No evidence of acute cardiopulmonary process. 2. Minimal right upper quadrant pneumoperitoneum. Correlate with nature of surgical procedure Electronically signed by: Arjun Groves MD (07/12/2019 10:13 AM) [id number]
[2019-07-12 10:16] LABS: ALBUMIN 3.8 g/dL (3.4-5.0); ALBUMIN/GLOBULIN RATIO 1.3 (1.0-1.7); TOTAL BILIRUBIN 0.4 mg/dL (0.2-1.0); TOTAL PROTEIN 6.8 g/dL (6.4-8.2)
[2019-07-12 10:25] LABS: BACTERIA,URINE FEW /HPF (0-FEW); SQUAMOUS EPITHELIAL CELL,UR FEW /LPF; TRICHOMONAS,URINE PRESENT
[2019-07-12] MEDS ORDERED: IOHEXOL 350 MG/ML 100 ML VIAL. IV ONE (10:45)
--- NOTE | 2019-07-12 11:43 | RAD ---
CT arteriogram of the chest, CT of the abdomen and pelvis with contrast. HISTORY: Port of breath, post surgery CT arteriogram of the chest was done using 100 mL Omnipaque 350 contrast. Sagittal and coronal MIP images were reconstructed. There is mild atelectasis in the lung bases. There is no pleural effusion. No other infiltrates are noted. There is mild respiratory motion artifact in the lung bases. This study is negative for evidence of a pulmonary embolus. IMPRESSION: 1. Negative for pulmonary embolus. 2. Respiratory motion artifact. 3. Mild atelectasis in the lung bases without other infiltrates. End impression The abdomen pelvis with contrast. A CT scan the abdomen pelvis was done following the CT chest with contrast. There is free air in the abdomen but the patient is postoperative. A liver lesion is not identified. There is no calcified gallstone. Spleen and adrenal glands are normal. A pancreatic lesion is not identified. There is no mass or hydronephrosis in the kidneys. There is no aortic aneurysm. There is no bowel obstruction. There is moderate stool in the colon. There is mild free fluid in the pelvis. Patient's had a hysterectomy. Left ovary is identified and normal in appearance. Right ovary is not from the bowel loops. There is mild air in the superficial soft tissues also likely postoperative. IMPRESSION: 1. Moderate stool in colon. 2. Small amount of fluid in the pelvis but a definitive abscess is not identified. 3. Pneumoperitoneum probably still postoperative. 4. No bowel obstruction. 5. No other acute finding. PQRS Compliance Statement: One or more of the following individualized dose reduction techniques were utilized for this examination: 1. Automated exposure control 2. Adjustment of the mA and/or kV according to patient size 3. Use of iterative reconstruction technique Electronically signed by: Oscar Moncada MD (07/12/2019 11:40 AM) [id number]
[2019-07-12] MEDS ORDERED: metroNIDAZOLE 500 MG TABLET PO STA (12:17)
[2019-07-12] MEDS ORDERED: CEPH-264 PO (12:17)
[2019-07-12] MEDS ORDERED: MORPHINE SULFATE 10 MG/ML VIAL. IV STA (12:27)
== END 2019-07-12 12:46 | disposition home or self-care (01) ==
LOC: ER 09:10
DX: N30.01 Acute cystitis with hematuria (principal); A59.9 Trichomoniasis, unspecified; G89.18 Other acute postprocedural pain; R10.9 Unspecified abdominal pain; N80.9 Endometriosis, unspecified; F17.200 Nicotine dependence, unspecified, uncomplicated; Z90.710 Acquired absence of both cervix and uterus; Z98.51 Tubal ligation status; Z98.890 Other specified postprocedural states; Z88.5 Allergy status to narcotic agent; Z88.6 Allergy status to analgesic agent; Z91.018 Allergy to other foods
CPT/HCPCS: 36415; 71046; 71275; 74177; 80053; 81001; 81025; 83605; 84145; 85025; 85610; 85730; 87086; 96374; 96375; 99285; J2270; J2405; J3010; J7030; Q9967

== ENCOUNTER → 2020-02-05 | Outpatient (CLI) | payer BC ==
[~2020-02-05] MED LIST changes: +CEPH-264 PO
--- NOTE | 2020-02-05 16:04 | KCIC ---
HAND LEFT 3V, WRIST 3V LEFT DATE: 02/05/2020 12:00 AM INDICATION: Hand/wrist pain, swelling,slammed hand/wrist on door frame a few wks. ago. COMPARISON: None. FINDINGS: Bones: There is no evidence of acute fracture or dislocation. Joints: The joint spaces are normal. Miscellaneous: None. IMPRESSION: No evidence of acute fracture. Electronically signed by: Lebron Kumar MD (02/05/2020 4:01 PM) [id number]
== END ==
LOC: KCIC 11:49
PROVIDERS: ATTEND Family Medicine
DX: M79.642 Pain in left hand (principal); M79.602 Pain in left arm
CPT/HCPCS: 73110; 73130

== ENCOUNTER → 2020-09-14 | Outpatient (CLI) | payer OTHER ==
[~2020-09-14] MED LIST changes: +ALBU2.5V8 INH; +HYDR25TA PO
== END ==
LOC: LAB 09:20
PROVIDERS: ATTEND Otolaryngology
DX: Z01.812 Encounter for preprocedural laboratory examination (principal); Z20.822 Contact with and (suspected) exposure to COVID-19
CPT/HCPCS: U0003; U0005

== ENCOUNTER 2020-09-17 07:29 | Day surgery (SDC) | payer OTHER ==
[~2020-09-17] VITALS: Ht 177.8 cm; Wt 108.0 kg
[2020-09-17] MEDS ORDERED: MORPHINE SULFATE 2 MG/ML VIAL. IVP PRN ×2 (07:45)
[2020-09-17] MEDS ORDERED: PROCHLORPERAZINE 10 MG/2 ML VIAL. IVP PRN ×2 (07:45)
[2020-09-17] MEDS ORDERED: fentaNYL PF VIAL 100 MCG/2 ML VIAL IVP PRN ×3 (07:45)
[2020-09-17] MEDS ORDERED: HYDROmorphone 2 MG/ML VIAL IVP PRN ×2 (07:45)
[2020-09-17] MEDS ORDERED: IV RINGERS,LACTATED 1000ML 1,000 ML IV SCH ×2 (07:45)
[2020-09-17] MEDS ORDERED: fentaNYL PF VIAL 100 MCG/2 ML VIAL ONE ×3 (08:14→11:17)
[2020-09-17] MEDS ORDERED: ONDANSETRON PF 4 MG/2 ML VIAL. ONE (08:14)
[2020-09-17] MEDS ORDERED: PROPOFOL 10 MG/ML (20ML) VIAL. IV ONE (08:14)
[2020-09-17] MEDS ORDERED: ROCURONIUM 50 MG/5 ML VIAL. ONE (08:14)
[2020-09-17] MEDS ORDERED: DEXAMETHASONE SOD PHOS 4 MG/ML VIAL ONE ×2 (08:14→08:15)
[2020-09-17] MEDS ORDERED: LIDOCAINE 2% PF 5 ML VIAL. ONE ×2 (08:14→10:40)
[2020-09-17] MEDS ORDERED: MIDAZOLAM HCL/PF 2 MG/2 ML VIAL. ONE (08:15)
[2020-09-17] MEDS ORDERED: OXYMETAZOLINE 0.05% NASAL SPRAY 30ML BOTTLE. NS ONE (08:45)
[2020-09-17] MEDS ORDERED: BUPIVACAINE-EPI 0.5% 30 ML VIAL KIT. ONE (08:45)
[2020-09-17] MEDS ORDERED: LIDOCAINE 1% Multi-Dose 20 ML VIAL. ONE (09:34)
[2020-09-17] MEDS ORDERED: LIDOCAINE 1%/EPI 1:100,000 20 ML VIAL. ONE (09:44)
[2020-09-17] MEDS ORDERED: NEOSTIGMINE METHYLSULFATE 5 MG/5 ML SYRINGE. ONE (09:57)
[2020-09-17] MEDS ORDERED: GLYCOPYRROLATE 1 MG/5 ML VIAL. ONE (09:57)
[2020-09-17] MEDS ORDERED: LIDOCAINE 1%/EPI 1:100,000 20 ML VIAL. INJ ONE (10:10)
[2020-09-17] MEDS ORDERED: SEVOFLURANE 61 TO 120 MINUTES. IH ONE (10:19)
[2020-09-17] MEDS ORDERED: DEXMEDETOMIDINE 200 MCG/2 ML VIAL. IV ONE (10:26)
[2020-09-17] MEDS ORDERED: HYDROmorphone 2 MG/ML VIAL ONE (11:17)
[2020-09-17] MEDS: fentaNYL PF VIAL 100 MCG/2 ML VIAL IVP PRN ×2 (11:24→11:53)
[2020-09-17] MEDS ORDERED: PROCHLORPERAZINE 10 MG/2 ML VIAL. ONE (11:29)
[2020-09-17] MEDS ORDERED: LIDOCAINE 2% VISCOUS 15 ML SOLUTION. SWSW PRN (12:00)
[2020-09-17] MEDS ORDERED: LIDOCAINE 2% VISCOUS 15 ML SOLUTION. ONE (12:02)
[2020-09-17] MEDS ORDERED: oxyCODONE/APAP 10/325 1 TAB TABLET ONE (12:40)
[2020-09-17] MEDS ORDERED: OXYC1TAB22 PO (12:43)
[2020-09-17] MEDS ORDERED: oxyCODONE/APAP 10/325 1 TAB TABLET PO ONE (12:45)
[2020-09-17 12:50] VITALS: BP 125/45
--- NOTE | 2020-09-17 15:19 | OP ---
DATE OF SURGERY: 09/17/2020 PREOPERATIVE DIAGNOSIS: Chronic tonsillitis with hypertrophy. POSTOPERATIVE DIAGNOSIS: Chronic tonsillitis with hypertrophy. PROCEDURE PERFORMED: Tonsillectomy. INDICATIONS FOR THE PROCEDURE: Chronic tonsillar infections and a history of tonsillar enlargement. ANESTHESIA: General anesthetic. ESTIMATED BLOOD LOSS: 20 mL. DESCRIPTION OF PROCEDURE: The patient was brought to the operating room and placed on the operating room table in the supine position, given a general anesthetic. When her airway was safe and secure, the table was rotated at 90 degrees. The patient's mouth was then braced open with a Se mouth gag and the oral cavity was observed. Both tonsils were found to be enlarged. The left tonsil was approached first. It was grasped with an Allis and retracted to a medial position. A shallow incision was created with a surgical knife and dissection was carried out beneath the tonsillar capsule using a David dissector and suction cautery. As the procedure progressed, bleeding was controlled with cauterization. It was noted that the tonsil was attached with dense fibrous tissue to the capsule. Removal was tedious. Bleeding was gradually controlled as the procedure progressed and the left tonsil was removed and bleeding controlled in the tonsillar fossa. The right tonsil was then approached in a similar fashion, using an Allis clamp and retracting it medially, creating a shallow incision and then gentle dissection beneath the tonsillar capsule. Again, tedious dissection was necessary to remove the tonsil. Bleeding was controlled with cautery. When the tonsil was completely removed, sponge was placed in the cavity for light pressure and bleeding was controlled. At the conclusion of the procedure, 1% lidocaine with epinephrine was injected into the tonsillar fossa. The oropharynx was irrigated and suctioned. The nasopharynx was then examined. There was an indication preoperatively that adenoidectomy may be considered. However, on this examination of the nasopharynx by placing a red Rosario catheter in the nose and elevating the soft palate and using a mirror for examination, there was not adenoid tissue of sufficient character to necessitate removal. At that time, the procedure was then considered complete. The patient was recovered from anesthesia and she was taken to recovery room in stable condition. PABLITO DR: Edd TID: [id number]
== END 2020-09-17 13:20 | disposition home or self-care (01) ==
LOC: SURG 07:29
PROVIDERS: ATTEND Otolaryngology
DX: J35.01 Chronic tonsillitis (principal); G47.30 Sleep apnea, unspecified; E66.9 Obesity, unspecified; F41.9 Anxiety disorder, unspecified; F17.210 Nicotine dependence, cigarettes, uncomplicated; Z87.440 Personal history of urinary (tract) infections; Z90.710 Acquired absence of both cervix and uterus; Z98.890 Other specified postprocedural states; Z72.89 Other problems related to lifestyle; Z88.8 Allergy status to other drugs, medicaments and biological substances
CPT/HCPCS: 42826; A4930; J0780; J1100; J1170; J2250; J2405; J2704; J2710; J3010; J3490; A4322; A4351

== ENCOUNTER 2020-09-20 12:42 | Emergency (ER) | payer OTHER ==
[~2020-09-20 12:42] MED LIST changes: +OXYC1TAB22 PO
== END 2020-09-20 13:17 | disposition left against medical advice (07) ==
LOC: ER 12:42
DX: K91.841 Postprocedural hemorrhage of a digestive system organ or structure following other procedure (principal); Z53.21 Procedure and treatment not carried out due to patient leaving prior to being seen by health care provider

== ENCOUNTER 2020-09-20 15:04 | Emergency (ER) | payer OTHER ==
[~2020-09-20] VITALS: Ht 172.7 cm; Wt 113.0 kg
[2020-09-20] MEDS: HYDROmorphone 2 MG/ML VIAL IVP ONE ×2 (15:53→17:35)
[2020-09-20] MEDS: IV NORMAL SALINE 1000ML BAG 1,000 ML IV ONE (15:53)
--- NOTE | 2020-09-20 17:11 | PHYS DOC ---
Past Medical History Past Medical History: Endometriosis Additional Past Medical Histor: strep throat Past Surgical History: Hysterectomy, Tubal ligation, Other Additional Past Surgical Histo: right ankle fracture repair with hardware Smoking Status: Current Every Day Smoker Alcohol Use: Rarely Drug Use: None General Adult EDM: Chief Complaint: OTHER COMPLAINTS HPI: HPI: 40-year-old female PMH endometriosis with MOOSE-USO and tobacco dependence, presents the ED with complaints of eating after patient had a T&A on with Dr. Tafoya, ENT at [facility]. Patient was sent over from [facility] urgent care clinic by Dr. Joey Fletcher. Labs including lactic acid were performed at that facility that were within normal limits, H&H was . ER doc at [facility] reported bilateral eschars with scant bleeding, no brisk bleeding, spitting small amounts of blood clots. Patient in ED reports no history of bleeding disorders, anemia or required any blood transfusions. I spoke to Dr. Tafoya prior to ED arrival and he did not recommend any labs -he had reviewed lab work from [facility]. He did recommend IV fluids and analgesia. Pt reports pain is well tolerated as an outpt but does report 1 hard stool, is not taking any fiber. Review of Systems: Review of Systems: Constitutional: Denies fever or chills. [] Eyes: Denies change in visual acuity. [] HENT: Denies nasal congestion or rhinorrhea Respiratory: Denies cough or shortness of breath. [] Cardiovascular: Denies chest pain or edema. [] GI: Denies abdominal pain, nausea, vomiting, bloody stools or diarrhea. [] : Denies dysuria or vaginal bleeding Musculoskeletal: Denies back pain or joint pain. [] Integument: Denies rash or diaphoresis Neurologic: Denies headache, focal weakness or sensory changes. [] Psychiatric: Denies depression or anxiety. [] Heart Score: C/O Chest Pain: No Risk Factors: Risk Factors: DM, Current or recent (<one month) smoker, HTN, HLP, family history of CAD, obesity. Risk Scores: Score 0 - 3: 2.5% MACE over next 6 weeks - Discharge Home Score 4 - 6: 20.3% MACE over next 6 weeks - Admit for Clinical Observation Score 7 - 10: 72.7% MACE over next 6 weeks - Early Invasive Strategies Current Medications: Current Medications Medications (Trade) Dose Ordered Sig/Aris Start Time Stop Time Status Last Admin Dose Admin Hydromorphone HCl (Dilaudid) 0.5 mg 1X ONCE 09/20/20 15:30 09/20/20 15:31 DC 09/20/20 15:53 0.5 MG Sodium Chloride 1,000 ml @ 1,000 mls/hr 1X ONCE 09/20/20 15:15 09/20/20 16:14 DC 09/20/20 15:53 1,000 MLS/HR Allergies: Allergies: Allergies Coded Allergies Type Severity Reaction Last Updated Verified almond Allergy Intermediate THROAT/MOUTH NUMB 09/17/20 Yes nickel Allergy Intermediate ITCH/RED 09/17/20 Yes ketorolac Adverse Reaction Intermediate "tuns red wherever they put it" 09/17/20 Yes morphine Adverse Reaction Mild NAUSEA/VOMITING 09/17/20 Yes Physical Exam: PE: Constitutional: Well developed, well nourished, no acute distress-does appear mildly in pain/speaking softly, non-toxic appearance, afebrile HENT: Normocephalic, atraumatic, granulation tissue bilaterally over location of prior pharyngeal tonsils with no active hemorrhage or visible bleeding, oropharynx patent with no edema, moist mucous membranes, Eyes: EOMI, conjunctiva normal, no discharge. Neck: Normal range of motion, supple, Cardiovascular: S1/2 present, regular rhythm Lungs & Thorax: Speaking in full sentences, bilateral equal chest rise, no tachypnea or increased work of breathing Abdomen: soft, no tenderness, no distention Skin: Warm, dry, no erythema, no rash. [] Extremities: No tenderness, no cyanosis, Neurologic: Alert and oriented X 3, no focal deficits noted. [] Psychologic: Affect normal, judgement normal, mood normal. [] EKG: EKG: [] Radiology/Procedures: Radiology/Procedures: [] Course & Med Decision Making: Course & Med Decision Making Pertinent Labs and Imaging studies reviewed. (See chart for details) Patient was seen and evaluated by ENT Dr. Bills in the emergency department. I recommended Metamucil/fiber otc for constipation. No signs of bowel obstruction-distention, no nausea or vomiting. Will discharge home with strict ED return precautions were given for recurrent bleeding, fever, head or neck swelling, dehydration, persistent nausea or vomiting, abdominal pain or severe pain. Encouraged urgent outpatient follow-up with PMD and ENT as discussed. Life-threatening processes were considered but are low suspicion at this time, given history, physical exam and ED workup. Pt was educated on all prescription medications and adverse effects. All patient's questions were answered and pt was stable at time of discharge. Life/limb-threatening differential includes but is not limited to, thrombocytopenia, drug related adverse event, posterior epistaxis, hemorrhagic shock, DIC, life-threatening rash, arterial injury or trauma. I spoken with the patient and her caregivers. I explained the patient's condition, diagnoses and treatment plan based on the information available to me at this time. I have answered the patient and her caregiver's questions and addressed any concerns. The patient and her caregivers have a good understanding of patient's diagnosis, condition and treatment plan as can be expected at this point. Vital signs have been stable. Patient's condition is stable and appropriate for discharge from the emergency department. Patient will pursue further outpatient evaluation with primary care physician or other designated or consulting physician as outlined in the discharge instructions. The patient and/or caregivers are agreeable to this plan of care and follow-up instructions have been explained in detail. The patient and/or caregivers have received these instructions in written form and have expressed an understanding of the discharge instructions. The patient and/or caregivers are aware that any significant change of condition or worsening of symptoms should prompt immediate return to this or the closest emergency department or call to 911. Job Disclaimer: Job Disclaimer: This electronic medical record was generated, in whole or in part, using a voice recognition dictation system. Departure Departure Impression: Primary Impression: Postoperative bleeding from incision Disposition: 01 HOME / SELF CARE / HOMELESS Condition: STABLE Referrals: DARREL ACEVES MD (PCP) Within 1 week for reevaluation Patient Instructions: Pain Relief Preoperatively and Postoperatively, Postsurgical Bleeding Additional Instructions: FOLLOW UP WITH ENT: as scheduled/discussed Giuseppe Tafoya DO [address] [place] [address], [address] [place] [address] [facility] [address] [facility] [address] [place], [place] [id number] EMERGENCY DEPARTMENT GENERAL DISCHARGE INSTRUCTIONS Thank you for coming to [facility] Emergency Department (ED) today and trusting us with you care. We trust that you had a positive experience in our Emergency Department. If you wish to speak to the department management, you may call the Director at [phone]. YOUR FOLLOW UP INSTRUCTIONS ARE FOLLOWS: 1. Do you have a private Doctor? If you do not have a private doctor, please ask for a resource list of physicians or clinics that may be able to assist you with follo w up care. 2. The Emergency Physicain has interpreted your x-rays. The X-Ray specialist will also review them. If there is a change in the findings, you will be notified in 48 hours when at all possible. 3. A lab test or culture has been done, your results will be reviewed and you will be notified if you need a change in treatment. ADDITIONAL INSTRUCTIONS AND INFORMATION: 1. Your care today has been supervised by a physician who is specially trained in emergency care. Many problems require more than one evaluation for a complete diagnosis and treatment. We recommend that you schedule your follow up appointment as rec ommended to ensure complete treatment of you illness or injury. If you are unable to obtain follow up care and continue to have a problem, or if your condition worsens, we recommend that you return to the ED. 2. We are not able to safely determine your condition over the phone nor are we able to give sound medical advice over the phone. For these safety reasons, if you call for medical advice we will ask you to come to the ED for further evaluation. 3. If you have any questions regarding these discharge instructions please call the ED at [phone]. SAFETY INFORMATION: In the interest of safety, wellness, and injury prevention; we encourage you to wear your sealbelt, if you smoke; quite smoking, and we encourage family to use a protective helmet for bicycling and other sporting events that present an increased risk for head injury. IF YOUR SYMPTOMS WORSEN OR NEW SYMPTOMS DEVELOP, OR YOU HAVE CONCERNS ABOUT YOUR CONDITION; OR IF YOUR CONDITION WORSENS WHILE YOU ARE WAITING FOR YOUR FOLLOW UP APPOINTMENT; EITHER CONTACT YOUR PRIMARY CARE DOCTOR, THE PHYSICIAN WHOSE NAME AND NUMBER YOU WERE GIVEN, OR RETURN TO THE ED IMMEDIATELY. CAMRYN SMITH DO September 20, 2020 17:11
[2020-09-20 17:27] VITALS: BP 139/66
--- NOTE | 2020-09-22 10:37 | PN ---
DATE: 09/20/2020 She is a patient who was admitted through the Emergency Room on the with a history of bleeding from her mouth following a tonsillectomy, which was completed on . She came to the Emergency Room and was bleeding and became anxious with the circumstances, feeling that she was not getting the attention that she needed and then left with her roommate and traveled up straight to the [facility]. There, she was seen and taken care of by a physician who evaluated her and found her basic vital signs stable. She was having some bleeding from her mouth, spitting the blood up and collecting it in a container. While she was there, he started an IV and obtained laboratory studies. The bleeding subsided and then stopped. During that time, he communicated with me that her condition had stabilized and it was concluded that she should then return to [place] [facility] to be reevaluated. She was transported after receiving a liter of fluid there and was seen in the Emergency Room. She was not having any active bleeding. Her vital signs were stable. Her voice was clear. Her breathing was consistent and smooth and easy. There was no bleeding from her nose or seen in her mouth. The tonsil fossae presented with a dark eschar typical of a postoperative tonsillectomy. No clot was noted and no blood on the back of her pharyngeal wall was noted. There was some uvulopalatal edema. Her neck was slightly tender, but there was no swelling, nor adenopathy. She was nauseated prior to arrival here at [facility] was given some Zofran which calmed her stomach. Historically, she had not ever vomited blood and was not complaining of any abdominal discomfort. Her last urination was about 2 hours ago. She had a bowel movement which was slightly difficult yesterday at approximately 5:00 to 8:00 this morning. Sometimes, she did take some Percocet that has dispensed for operative recovery and had not taken any of that medication since. It was considered that she has a post-tonsillectomy bleed, which has stopped and has clearance of her tonsil fossa and no active bleeding is occurring at this point. Plan is that she is stable now and has had 1 liter of fluid, an additional liter was given and some medication to bridge her pain management. She will be discharged to home and that was proposed to her and she accepted that as did her caregiver who was with her. She would be then communicated with and be sure that her progress was continuing without any further bleeding and then followed up in the outpatient office as scheduled. MICHAEL/LUCIA DR: Edd TID: [id number]
== END 2020-09-20 17:50 | disposition home or self-care (01) ==
LOC: ER 15:04
DX: L76.22 Postprocedural hemorrhage of skin and subcutaneous tissue following other procedure (principal); F17.200 Nicotine dependence, unspecified, uncomplicated; Z88.5 Allergy status to narcotic agent; Z88.6 Allergy status to analgesic agent; Z88.8 Allergy status to other drugs, medicaments and biological substances; Z91.018 Allergy to other foods
CPT/HCPCS: 96361; 96374; 96376; 99284; J1170; J7030

== ENCOUNTER 2021-09-06 00:26 | Emergency (ER) | payer OTHER ==
[~2021-09-06] VITALS: Ht 177.8 cm; Wt 70.0 kg
[2021-09-06 00:49] VITALS: BP 129/73
[2021-09-06] MEDS ORDERED: oxyCODONE/APAP 5/325 1 TAB TABLET PO ONE (01:00)
--- NOTE | 2021-09-06 01:25 | RAD ---
XR KNEE 4 VIEWS WITH PATELLA_RT 09/06/2021 1:06 AM INDICATION: Pain, jumped from several feet COMPARISON: None available. TECHNIQUE: 3 views of the right knee are provided. FINDINGS/ IMPRESSION: Small knee joint effusion. There is no acute fracture or dislocation. Joint spaces are maintained. Billy ne mineralization is within normal limits. Regional soft tissues are within normal limits. There is n o soft tissue gas or osseous erosion. No radiopaque foreign body. Electronically signed by: Rosa Tsang MD (09/06/2021 1:23 AM) ALEXANDER
--- NOTE | 2021-09-06 01:58 | PHYS DOC ---
Past Medical History Past Medical History: Endometriosis Additional Past Medical Histor: strep throat Past Surgical History: Hysterectomy, Tonsillectomy, Tubal ligation Additional Past Surgical Histo: right ankle fracture repair with hardware Smoking Status: Current Every Day Smoker Alcohol Use: Occasionally Drug Use: None General Adult EDM: Chief Complaint: KNEE INJURY HPI: HPI: Patient is a 41 year old F who presents with pain in her R knee after jumping from the back of a pickup truck. Patient has pain, sharp, sudden in onset, no hitting the ground. Patient was unable to bear weight immediately after the injury. Denies deformity or discoloration. Pains radiating up her thigh and down her calf. Review of Systems: Review of Systems: Constitutional: Denies fever or chills. [] Eyes: Denies change in visual acuity. [] HENT: Denies nasal congestion or sore throat. [] Respiratory: Denies cough or shortness of breath. [] Cardiovascular: Denies chest pain or edema. [] GI: Denies abdominal pain, nausea, vomiting, bloody stools or diarrhea. [] : Denies dysuria. [] Musculoskeletal: R knee pain, no other joint pain Integument: Denies rash. [] Neurologic: Denies headache, focal weakness or sensory changes. [] Endocrine: Denies polyuria or polydipsia. [] Lymphatic: Denies swollen glands. [] Psychiatric: Denies depression or anxiety. [] Heart Score: C/O Chest Pain: No Risk Factors: Risk Factors: DM, Current or recent (<one month) smoker, HTN, HLP, family history of CAD, obesity. Risk Scores: Score 0 - 3: 2.5% MACE over next 6 weeks - Discharge Home Score 4 - 6: 20.3% MACE over next 6 weeks - Admit for Clinical Observation Score 7 - 10: 72.7% MACE over next 6 weeks - Early Invasive Strategies Current Medications: Current Medications Medications (Trade) Dose Ordered Sig/Aris Start Time Stop Time Status Last Admin Dose Admin Oxycodone/ Acetaminophen (Percocet 5/325) 1 tab 1X ONCE 09/06/21 01:00 09/06/21 01:02 DC 09/06/21 01:37 1 TAB Allergies: Allergies: Allergies Coded Allergies Type Severity Reaction Last Updated Verified almond Allergy Intermediate THROAT/MOUTH NUMB 09/17/20 Yes nickel Allergy Intermediate ITCH/RED 09/17/20 Yes ketorolac Adverse Reaction Intermediate "tuns red wherever they put it" 09/17/20 Yes morphine Adverse Reaction Mild NAUSEA/VOMITING 09/17/20 Yes Physical Exam: PE: Constitutional: Well developed, well nourished, no acute distress, non-toxic appearance. [] HENT: Normocephalic, atraumatic, bilateral external ears normal, oropharynx moist, no oral exudates, nose normal. [] Eyes: PERRLA, EOMI, conjunctiva normal, no discharge. [] Neck: Normal range of motion, no tenderness, supple, no stridor. [] Cardiovascular:Heart rate regular rhythm, no murmur [] Lungs & Thorax: Bilateral breath sounds clear to auscultation [] Abdomen: Bowel sounds normal, soft, no tenderness, no masses, no pulsatile masses. [] Skin: Warm, dry, no erythema, no rash. [] Back: No tenderness, no CVA tenderness. [] Extremities: TTP and limited ROM in R knee d/t pain, rest of RLE n/v intact, no obvious deformity or discoloration of RLE Neurologic: Alert and oriented X 3, normal motor function, normal sensory function, no focal deficits noted. [] Psychologic: Affect normal, judgement normal, mood normal. [] Current Patient Data: Vital Signs: Vital Signs Date Time Temp Pulse Resp B/P (MAP) Pulse Ox O2 Delivery O2 Flow Rate FiO2 09/06/21 01:37 16 98 Room Air 09/06/21 00:49 97.9 96 129/73 (91) 97.9 EKG: EKG: [] Radiology/Procedures: Radiology/Procedures: R knee xray Impression: small joint effusion, no obvious fracture or dislocation Course & Med Decision Making: Course & Med Decision Making will treat pain with percocet d/t the patients NSAID allergy, will xray to r/o fx or dislocation patients xray neg for fx or dislocation, likely ligamentous injury based on effusion, will recommend she RICE and f/u PCP or ortho in one week if not improving Job Disclaimer: Job Disclaimer: This electronic medical record was generated, in whole or in part, using a voice recognition dictation system. Departure Departure Impression: Primary Impression: Knee sprain Qualified Codes: S83.91XA - Sprain of unspecified site of right knee, initial encounter Disposition: HOME / SELF CARE / HOMELESS Condition: GOOD Referrals: BENITO DYE APRN (PCP) Patient Instructions: Knee Sprain, [id number] MARLENY RAYO MD September 06, 2021 01:58
== END 2021-09-06 02:20 | disposition home or self-care (01) ==
LOC: ER 00:26
DX: S83.91XA Sprain of unspecified site of right knee, initial encounter (principal); F17.200 Nicotine dependence, unspecified, uncomplicated; Z88.5 Allergy status to narcotic agent; Z91.018 Allergy to other foods; X50.9XXA Other and unspecified overexertion or strenuous movements or postures, initial encounter; Y93.39 Activity, other involving climbing, rappelling and jumping off; Y92.89 Other specified places as the place of occurrence of the external cause; Y99.8 Other external cause status
CPT/HCPCS: 73564; 99283